=== PATIENT | female | born 1955 | race Caucasian/White ===

== ENCOUNTER 2016-07-25 08:16 | Inpatient (IN) | payer OTHER ==
[~2016-07-25] VITALS: Ht 149.9 cm; Wt 126.1 kg
--- NOTE | ~2016-07-25 | EKG ---
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
--- NOTE | ~2016-07-25 | 2DMMODE ---
[facility] [place] [address] 2 D/M-MODE ECHOCARDIOGRAM Name: MARSHALL MORENO Room #: 207-P [facility] IN ..#: [id number] Admission: 07/25/16 Attend Phys: Marleni Bhatti Discharge: Date of : 51 Date of Service: 07/25/16 1555 Report #: [id number] THIS REPORT FOR: //name// APPROVED REPORT EXAM: Comprehensive 2D, Doppler, and color-flow Echocardiogram Patient Location: Bedside Blood Pressure: 134/69 mmHg HR: 90 bpm Other Information Study Quality: Poor Technically limited study due to body habitus, inability to position patient, lung disease. Indications COPD Diabetes Dyspnea Hypertension/HDD Definity was used to evaluate left ventricular function. Aortic Valve AoV Peak Yao.: 1.47 m/s AO Peak Gr.: 8.59 mmHg LV Max P.91 mmHg LV Max: 0.85 m/s Mitral Valve MV PHT: 60.30 ms MV E Max Yao.: 0.89 m/s E/A Ratio: 1.2 MV A Yao.: 0.72 m/s MV Decel. Time: 207.94 ms Pulmonary Valve PV Peak Yao.: 1.21 m/s PV Peak Gr.: 5.82 mmHg Left Ventricle The left ventricle is normal size. There is normal LV segmental wall motion. There is normal left ventricular wall thickness. Left ventricular systolic function is normal. The left ventricular ejection fraction is within the normal range. LVEF is 55-60%. The left ventricular diastolic function is normal. [facility] [address] [place] [address] 2 D/M-MODE ECHOCARDIOGRAM Name: MARSHALL MORENO Yogesh Room #: 207-P [facility] IN [facility]#: [id number] Admission: 07/25/16 Attend Phys: Marleni Bhatti Discharge: Date of : 51 Date of Service: 07/25/16 1555 Report #: [id number] Right Ventricle The right ventricle is normal size. The right ventricular systolic function is normal. Atria The left atrium size is normal. The right atrium size is normal. Aortic Valve The aortic valve is normal in structure. No aortic regurgitation is present. There is no aortic valvular stenosis. Mitral Valve The mitral valve is normal in structure. There is no mitral valve regurgitation noted. Tricuspid Valve The tricuspid valve is normal in structure. There is no tricuspid valve regurgitation noted. Pulmonic Valve Pulmonic valve is not well visualized. Great Vessels The aortic root is normal in size. IVC is not visualized. Pericardium There is no pericardial effusion. <Conclusion> Technically very limited study Left ventricular systolic function is normal. There is normal LV segmental wall motion. LVEF 55-60%. The aortic valve is normal in structure. No stenosis or insufficiency The mitral valve is normal in structure. No stenosis or insufficiency There is no pericardial effusion. <ELECTRONICALLY SIGNED> By: Ramos Sue MD, [facility] 07/25/16 1555 1555 1555 Ramos Sue MD, [facility] /INF
[~2016-07-25 08:16] MED LIST: ACIDOPHILUS PR1 EACH PO; ACIPHEX 20 MG T20 M1 PO; ASPIRIN EC325 M1 PO; ASTEPRO; B12INJ IM; BENADRYL25 MG PO; BYSTOLIC 5 MG5 M1 PO; CLARINEX5 MG PO; COLACE100 MG PO; CYMBALTA60 MG PO; DEPLIN15 MG PO; DILAUDID 4 MG TA4 MG PO; EPIPEN0.3 MG/0.3; EXALGO16 MG PO; FLAX SEED; HYDROXYZINE HCL25 M2 PO; LANTUS SUBQ; LIDODERM 5%1 PATC1 TOP; LYRICA150 MG PO; MAGNESIUM PO; MULTIVITAMIN PO; NAPRELAN PO; NIRAVAM SUBLING; NOVAFINE; NOVOLOG100 UNIT/1; NOVOLOG100 UNIT/1 SQ; NUVIGIL PO; PENNSAID150 ML TP; PREDNISONE 10 M10 M1 PO; PREDNISONE 20 M20 M1 PO; SINGULAIR 10 MG10 M1 PO; SKELAXIN 800 M800 MG; SKELAXIN 800 M800 MG PO; VERAMYST NASAL; VITAMIN D 5050000 I1 PO; VYTORIN 10-801 EACH PO; XOPENEX HFA15 GM INH
[2016-07-25 08:35] VITALS: BP 139/52
[2016-07-25 09:26] LABS: ABSOLUTE NEUTROPHILS 4.1 thou/uL (1.4-8.2); BASOPHILS 0.9 % (0.0-2.0); EOSINOPHILS 6.4 % (0.0-3.0); HEMATOCRIT 38.2 % (37.0-47.0); HEMOGLOBIN 12.8 gm/dL (12.0-15.0); LYMPHOCYTES 23.7 % (24.0-44.0); MCH 28.3 pg (26.0-34.0); MCHC 33.6 g/dL (28.0-37.0); MCV 84.4 fL (80.0-100.0); MONOCYTES 9.9 % (1.0-8.0); PLATELET COUNT 237 thou/uL (150-400); POLYS 59.1 % (36.0-66.0); RBC 4.52 mil/uL (4.20-5.00); RDW 14.3 % (10.5-14.5); WBC 6.9 thou/uL (4.0-11.0)
[2016-07-25 09:35] LABS: MANUAL DIFF NO
[2016-07-25 09:37] LABS: CALCIUM 9.6 mg/dL (8.5-10.1); CREATININE 1.3 mg/dL (0.6-1.3)
[2016-07-25] MEDS ORDERED: DEPLIN-ALGAL O1 EAC1 PO (10:26)
[2016-07-25] MEDS ORDERED: ALBUTEROL2.5 MG/0.5 INH (10:28)
[2016-07-25] MEDS ORDERED: MIRALAX255 GM PO (10:29)
[2016-07-25] MEDS ORDERED: LIORESAL 10 MG10 MG PO (10:30)
[2016-07-25] MEDS ORDERED: B12INJ IM (10:31)
[2016-07-25] MEDS ORDERED: CRESTOR10 MG PO (10:32)
[2016-07-25] MEDS ORDERED: TRICOR145 MG PO (10:33)
[2016-07-25 10:35] LABS: ABG SAMPLE TYPE ARTERIAL; BE(vivo) 5.3 mmol/L (-2 to +3); HCO3 33.1 mmol/L (22.0-26.0); LACTATE 1.23 mmol/L (0.5-2.0); O2(CT) 16.3 mL/dL (15.0-23.0); O2Hb 85.7 % (92.0-98.0); PCO2 63.4 mmHg (35.0-45.0); PO2 56.6 mmHg (80.0-100.0); pH 7.335 (7.360-7.450); sO2 86.8 % (92.0-98.0)
[2016-07-25 10:36] LABS: STICK SITE R.RADIAL
[2016-07-25] MEDS ORDERED: IBUPROFEN 200200 M1 PO (14:22)
[2016-07-25 14:55] VITALS: BP 148/72
[2016-07-25 20:30] VITALS: BP 150/79
[2016-07-26] VITALS: BP 107/50
[2016-07-26 03:18] VITALS: BP 126/55
[2016-07-26 04:27] LABS: CREATININE 1.4 mg/dL (0.6-1.3); POTASSIUM 4.1 mmol/L (3.5-5.1); TOTAL BILIRUBIN 0.4 mg/dL (<0.1-1.0); TOTAL PROTEIN 6.2 g/dL (6.4-8.2)
[2016-07-26 07:46] VITALS: BP 140/84
[2016-07-26 12:26] VITALS: BP 143/59
[2016-07-26] MEDS ORDERED: LASIX 20 MG TAB20 MG PO (13:26)
[2016-07-26] MEDS ORDERED: PREDNISONE 10 M10 MG PO (13:26)
[2016-07-26] MEDS ORDERED: KLOR-CON 1010 MEQ PO (13:26)
[2016-07-26 14:07] VITALS: BP 143/59
[2016-07-26 14:17] VITALS: BP 143/59
[2016-07-26 21:06] LABS: GLYCOHEMOGLOBIN (HGB A1C) 7.5 % (4.8-5.6)
== END 2016-07-26 15:16 | disposition home or self-care (01) | DRG 189 ==
LOC: ER 08:16 → EROBS 10:28 → 2N 12:55
PROVIDERS: Emergency Medicine; Internal Medicine Endocrinology, Diabetes & Metabolism; Nurse Practitioner
DX: J96.21 Acute and chronic respiratory failure with hypoxia (principal); F11.20 Opioid dependence, uncomplicated; J44.1 Chronic obstructive pulmonary disease with (acute) exacerbation; Z68.43 Body mass index [BMI] 50.0-59.9, adult; E87.70 Fluid overload, unspecified; J96.22 Acute and chronic respiratory failure with hypercapnia; G89.4 Chronic pain syndrome; G25.81 Restless legs syndrome; M10.9 Gout, unspecified; G47.00 Insomnia, unspecified; M48.06 Spinal stenosis, lumbar region; E11.649 Type 2 diabetes mellitus with hypoglycemia without coma; G47.33 Obstructive sleep apnea (adult) (pediatric); M79.7 Fibromyalgia; F41.9 Anxiety disorder, unspecified; I11.0 Hypertensive heart disease with heart failure; I50.9 Heart failure, unspecified; N39.3 Stress incontinence (female) (male); E66.01 Morbid (severe) obesity due to excess calories; J45.909 Unspecified asthma, uncomplicated; M19.90 Unspecified osteoarthritis, unspecified site; M81.0 Age-related osteoporosis without current pathological fracture; F43.10 Post-traumatic stress disorder, unspecified; F32.9 Major depressive disorder, single episode, unspecified; K21.9 Gastro-esophageal reflux disease without esophagitis; Z90.710 Acquired absence of both cervix and uterus; Z90.49 Acquired absence of other specified parts of digestive tract; Z88.2 Allergy status to sulfonamides; Z88.8 Allergy status to other drugs, medicaments and biological substances; Z79.4 Long term (current) use of insulin; Z88.6 Allergy status to analgesic agent; Z88.1 Allergy status to other antibiotic agents; Z91.013 Allergy to seafood; Z87.891 Personal history of nicotine dependence; Z79.899 Other long term (current) drug therapy; Z99.81 Dependence on supplemental oxygen; T42.6X5A Adverse effect of other antiepileptic and sedative-hypnotic drugs, initial encounter
CPT/HCPCS: 10081